=== PATIENT | male | born 1955 | race Caucasian/White ===

== ENCOUNTER 2019-04-13 10:38 | Day surgery (SDC) | payer OTHER ==
[~2019-04-13 10:38] MED LIST: CEFAZOLIN 2 GM/50 ML (PMX) 50 ML IVPB
[2019-04-13] MEDS ORDERED: SOD CHLORIDE 0.9% 1,000 ML IV ×2 (11:30→13:30)
[2019-04-13] MEDS: BUPIVACAINE 0.5% (SDV) 30 ML INJ (12:13)
[2019-04-13] MEDS ORDERED: FENTAnyl 50 MCG/ML VIAL (12:25)
[2019-04-13] MEDS ORDERED: LIDOCAINE 2% (SDV) 5 ML INJ (12:25)
[2019-04-13] MEDS ORDERED: CEFAZOLIN 1 GM INJ (12:25)
[2019-04-13] MEDS ORDERED: MIDAZOLAM 1 MG/ML 2 ML INJ (12:25)
[2019-04-13] MEDS ORDERED: PROPOFOL 20 ML (12:25)
[2019-04-13] MEDS ORDERED: METOCLOPRAMIDE 10 MG INJ (12:46)
[2019-04-13] MEDS ORDERED: ONDANSETRON 4 MG INJ (12:46)
[2019-04-13] MEDS ORDERED: FAMOTIDINE 20 MG INJ (12:46)
[2019-04-13] MEDS ORDERED: LABETALOL HCL 20MG INJ IV (13:30)
[2019-04-13] MEDS ORDERED: MEPERIDINE 25 MG INJ IV (13:30)
[2019-04-13] MEDS ORDERED: OXYCODONE/ACETAMINOPHEN (5/325) TAB PO ×2 (13:30)
[2019-04-13] MEDS ORDERED: HYDROmorphONE 1 MG/5 ML IV SYRINGE IV ×3 (13:30)
[2019-04-13] MEDS ORDERED: ONDANSETRON 4 MG INJ IV (13:30)
[2019-04-13] MEDS ORDERED: HYDROCODONE/APAP (5/325) TAB PO (14:00)
== END 2019-04-13 15:40 | disposition home or self-care (01) ==
LOC: SDS 10:38
DX: N47.1 Phimosis (principal); N48.1 Balanitis; E11.9 Type 2 diabetes mellitus without complications; I10 Essential (primary) hypertension; E78.5 Hyperlipidemia, unspecified
CPT/HCPCS: 54161; 82962; 88304